=== PATIENT | male | born 1985 | race Caucasian/White ===

== ENCOUNTER 2018-03-20 09:42 | Emergency (ER) | payer OTHER ==
[~2018-03-20] VITALS: Ht 180.3 cm; Wt 94.3 kg
[2018-03-20 09:54] VITALS: BP 147/98
== END 2018-03-20 10:19 | disposition home or self-care (01) ==
LOC: ED 09:42
DX: L02.413 Cutaneous abscess of right upper limb (principal); F15.10 Other stimulant abuse, uncomplicated

== ENCOUNTER 2018-09-12 14:47 | Emergency (ER) | payer SELFPAY ==
[~2018-09-12] VITALS: Ht 180.3 cm; Wt 106.1 kg
[2018-09-12 14:49] VITALS: BP 117/69; Ht 180.3 cm; Wt 106.1 kg
== END 2018-09-12 15:27 | disposition home or self-care (01) ==
LOC: ED 14:47
DX: H60.92 Unspecified otitis externa, left ear (principal)